=== PATIENT | male | born 1985 | race Caucasian/White ===

== ENCOUNTER 2019-07-20 16:05 | Observation (INO) ==
[2019-07-20 16:26] LABS: Bilirubin,Urine Negative (Negative); Blood,Urine Trace-intact (Negative); Clarity,Urine Clear (Clear); Color,Urine Yellow (Yellow); Glucose,Urine (UA) Normal (Normal); Ketones,Urine Negative (Negative); Leukocyte Esterase,Urine Negative (Negative); Nitrite,Urine Negative (Negative); PH,Urine 5.5 pH Units (5.0-8.0); Protein,Urine 100 mg/dL (Neg-Trace)
[2019-07-20 16:40] LABS: Bacteria,Urine Few per hpf (None-Few); Granular Casts,Urine Few per lpf (None Seen); RBC,Urine 0-3 per hpf (0-3); Squamous Epithelial Cell,Urine Few per lpf (None-Few); WBC,Urine 0-3 per hpf (0-3); Yeast,Urine Few per hpf (None Seen)
[2019-07-20] MEDS ORDERED: Azithromycin 500 MG in D5% in Water 250 ML IVPB ONE (16:58)
[2019-07-20 17:01] LABS: Basophils % 0.2 %; Eosinophils % 0.1 %; Hematocrit 39.6 % (37.5-50.1); Hemoglobin 14.1 g/dL (12.9-16.9); Immature Granulocytes % 1.2 % (0-4); Lymphocytes # 1.4 K/mcL (0.6-4.6); Lymphocytes % 7.2 %; Mean Corpuscular HGB Conc 35.6 g/dL (31.6-35.5); Mean Corpuscular Hemoglobin 31.2 pg (28.0-33.3); Mean Corpuscular Volume 87.6 fL (83.0-100.0); Mean Platelet Volume 9.6 fL (9.4-12.4); Monocytes # 1.2 K/mcL (0.0-1.3); Monocytes % 5.8 %; Neutrophils # 16.9 K/mcL (1.6-8.9); Platelet Count 221 K/mcL (140-400); Red Blood Count 4.52 M/mcL (4.19-5.50); Red Cell Distribution Width 13.3 % (11.5-14.5); Segmented Neutrophils % 85.5 %; White Blood Count 19.8 K/mcL (4.3-11.1)
[2019-07-20 17:06] LABS: INR 1.2; Prothrombin Time 13.1 Seconds (9.4-12.1)
[2019-07-20 17:08] LABS: Activated Partial Thrombo Time 31.3 Seconds (26.0-36.0)
[2019-07-20 17:17] LABS: Alanine Aminotransferase 150 Units/L (7-52); Albumin 3.7 g/dL (3.5-5.7); Alkaline Phosphatase 86 Units/L (34-104); Aspartate Amino Transferase 39 Units/L (13-39); BUN/Creatinine Ratio 31 (6-26); Bilirubin,Total 0.7 mg/dL (0.3-1.0); Blood Urea Nitrogen 21 mg/dL (6-20); Calcium 9.2 mg/dL (8.6-10.3); Carbon Dioxide 25 mEq/L (23-29); Chloride 99 mEq/L (98-107); Globulin 3.7 g/dL (2.4-3.5); Glucose 82 mg/dL (70-105); Osmolality,Calculated 276 (280-300); Potassium 3.3 mEq/L (3.5-5.1); Sodium 132 mEq/L (136-145); Total Protein 7.4 g/dL (6.4-8.9); eGFR For African Americans > 60 (> 60); eGFR For Non-African Americans > 60 (> 60)
[2019-07-20] MEDS: 0.9 % Sodium Chloride 1,000 ML IVC SCH ×10 (17:23→23:12)
[2019-07-20] MEDS ORDERED: traMADol 50 MG TABLET PO ONE (18:31)
[2019-07-20] MEDS ORDERED: Ondansetron ODT 4 MG TAB.RAPDIS SL PRN (18:41)
[2019-07-20] MEDS ORDERED: Naloxone 0.4 MG/ML INJ IVP PRN (18:41)
[2019-07-21] MEDS: traMADol 50 MG TABLET PO PRN ×3 (03:04→22:07)
[2019-07-21] MEDS: 0.9 % Sodium Chloride 1,000 ML IVC SCH (06:00)
[2019-07-21 06:33] LABS: BUN/Creatinine Ratio 16 (6-26); Blood Urea Nitrogen 11 mg/dL (6-20); Calcium 8.6 mg/dL (8.6-10.3); Carbon Dioxide 26 mEq/L (23-29); Chloride 104 mEq/L (98-107); Glucose 102 mg/dL (70-105); Osmolality,Calculated 278 (280-300); Potassium 3.5 mEq/L (3.5-5.1); Sodium 134 mEq/L (136-145); eGFR For African Americans > 60 (> 60); eGFR For Non-African Americans > 60 (> 60)
[2019-07-21] MEDS: cefTRIAXone 1,000 MG in Water for inj. (sterile) 10 ML IVP SCH (08:54)
[2019-07-21] MEDS: Nicotine 21 MG PATCH.TD24 TD SCH (10:26)
[2019-07-21] MEDS: 0.45 % Sodium Chloride w/KCl 20 MEQ/1,000 ML MLS IVC SCH (10:55)
[2019-07-21] MEDS ORDERED: Azithromycin 500 MG in 0.9 % Sodium Chloride 250 ML IVPB SCH (18:00)
[2019-07-21] MEDS: Lactobacillus 1 EACH CAP.SPRINK PO SCH (19:27)
[2019-07-22] MEDS: 0.45 % Sodium Chloride w/KCl 20 MEQ/1,000 ML MLS IVC SCH (00:05)
[2019-07-22] MEDS ORDERED: traMADol 50 MG TABLET PO ONE (02:25)
[2019-07-22 06:56] LABS: Basophils % 0.3 %; Eosinophils # 0.1 K/mcL (0.0-0.6); Hematocrit 36.8 % (37.5-50.1); Immature Granulocytes % 0.4 % (0-4); Lymphocytes # 2.7 K/mcL (0.6-4.6); Lymphocytes % 29.5 %; Mean Corpuscular HGB Conc 35.3 g/dL (31.6-35.5); Mean Corpuscular Volume 87.6 fL (83.0-100.0); Mean Platelet Volume 9.4 fL (9.4-12.4); Monocytes # 0.9 K/mcL (0.0-1.3); Monocytes % 9.9 %; Neutrophils # 5.4 K/mcL (1.6-8.9); Platelet Count 283 K/mcL (140-400); Red Cell Distribution Width 13.5 % (11.5-14.5); Segmented Neutrophils % 58.9 %; White Blood Count 9.2 K/mcL (4.3-11.1)
[2019-07-22 07:04] LABS: BUN/Creatinine Ratio 17 (6-26); Blood Urea Nitrogen 10 mg/dL (6-20); Calcium 8.8 mg/dL (8.6-10.3); Carbon Dioxide 24 mEq/L (23-29); Chloride 106 mEq/L (98-107); Glucose 100 mg/dL (70-105); Osmolality,Calculated 283 (280-300); Phosphorous 4.4 mg/dL (2.7-4.5); Potassium 3.8 mEq/L (3.5-5.1); Sodium 137 mEq/L (136-145); eGFR For African Americans > 60 (> 60); eGFR For Non-African Americans > 60 (> 60)
[2019-07-22 07:15] VITALS: BP 115/67
[2019-07-22 07:43] LABS: Platelet Estimate Normal (Normal); Reactive Lymphocytes Present (Not Present)
[2019-07-22] MEDS ORDERED: traMADol 50 MG TABLET PO PRN (09:00)
[2019-07-22] MEDS: Lactobacillus 1 EACH CAP.SPRINK PO SCH (09:01)
[2019-07-22] MEDS: cefTRIAXone 1,000 MG in Water for inj. (sterile) 10 ML IVP SCH (09:02)
[2019-07-22] MEDS: Nicotine 21 MG PATCH.TD24 TD SCH (09:03)
== END 2019-07-22 11:25 | disposition home or self-care (01) ==
LOC: INPPIK 16:05 → EMEROOPIK 16:05 → INPPIK 18:44
PROVIDERS: ADMIT Internal Medicine; ATTEND Internal Medicine